=== PATIENT | male | born 1960 | race Caucasian/White ===

== ENCOUNTER → 2017-05-16 | Outpatient (CLI) | payer OTHER ==
--- NOTE | 2017-05-16 14:30 | CT ---
EXAMINATION TYPE: CT brain wo con DATE OF EXAM: 05/16/2017 COMPARISON: NONE HISTORY: Headache CT DLP: 1090.[address] of the brain was performed. The ventricles, basal cisterns and sulci overlying the cerebral convexities demonstrate mild enlargem ent. There is no evidence for intracranial hemorrhage or sulcal effacement. There is decreased attenuation about the periventricular white matter and deep white matter of both c erebral hemispheres, compatible with chronic small vessel ischemia. Differential diagnosis does inclu de demyelination. No mass effects are seen.No midline shift. Osseous calvarium is intact. If symptoms persist consider MRI. IMPRESSION: 1. Age related atrophic and chronic small vessel ischemic change without acute intracranial process s een at this time.
== END ==
LOC: RADCTMAIN 13:59
PROVIDERS: ATTEND Family Medicine
DX: G31.1 Senile degeneration of brain, not elsewhere classified (principal); I67.82 Cerebral ischemia
CPT/HCPCS: 70450

== ENCOUNTER → 2017-06-08 | Outpatient (CLI) | payer OTHER ==
--- NOTE | 2017-06-08 17:05 | MR ---
EXAMINATION TYPE: MR brain wo con DATE OF EXAM: 06/08/2017 4:21 PM COMPARISON: NONE HISTORY: Headaches, FINDINGS: The ventricles, basal cisterns and sulci overlying the cerebral convexities are mildly enlarged. There is evidence of mild periventricular white matter ischemic demyelination. Tiny scattered foci of increased signal are seen within the deep and subcortical white matter of both cerebral hemispheres as well as the earl. The findings are nonspecific and could be related to chron ic migraine headaches, vasculitis, chronic small vessel ischemic change, sequela of Lyme's disease as well as demyelinating process. No acute edema is seen on diffusion weighted imaging. There is no evidence for midline shift or mass effect. Acute intracranial hemorrhage or extra-axial collection is not evident. Chronic paranasal sinusitis. Mastoid air cells well-aerated. IMPRESSION: Age-related atrophic and chronic small vessel ischemic change. Nonspecific tiny scattered foci of inc reased signal as discussed. No acute intracranial process at this time.
== END | disposition home or self-care (01) ==
LOC: RADMRIMAIN 15:36
PROVIDERS: ATTEND Physician Assistant Medical
DX: G31.1 Senile degeneration of brain, not elsewhere classified (principal); I67.82 Cerebral ischemia; R51 Headache
CPT/HCPCS: 70551

== ENCOUNTER → 2017-08-08 | Outpatient (CLI) | payer OTHER ==
--- NOTE | 2017-08-08 15:00 | XR ---
Cervical spine HISTORY: Neck pain, headache 5 views of the cervical spine No comparisons Cervical vertebral bodies show preserved height. Minimal retrolisthesis grade 1 C5-6. Loss of disc he ight present at the intervertebral levels especially at C4-5, C5-6 and C6-7, there is associated spon dylosis. Foraminal encroachment suspected at 4, C4-5, C5-6 and C6-7 on the right. IMPRESSION: Degenerative disc disease
== END ==
LOC: RADXRYALE 14:00
PROVIDERS: ATTEND Physician Assistant
DX: M50.30 Other cervical disc degeneration, unspecified cervical region (principal)
CPT/HCPCS: 72050

== ENCOUNTER 2017-08-23 09:45 | Day surgery (SDC) | payer OTHER ==
[2017-08-22 09:00] VITALS: BMI 31.2
[~2017-08-23 09:45] MED LIST: LACTATED RINGERS 1,000 ML IV SCH
[2017-08-23 11:04] VITALS: TEMP 98.2
[2017-08-23] MEDS ORDERED: LIDOCAINE 1% 20 ML VIAL (10MG/ML) FOR IV START INTRADERMA ONE (11:13)
[2017-08-23] MEDS ORDERED: PROPOFOL 10 MG/ML 20 ML VIAL IV ONE (11:46)
--- NOTE | 2017-08-23 12:19 | P.PCN ---
Date of Procedure: 08/23/17 Procedure(s) Performed: Procedure: Colonoscopy and polypectomy. Preoperative diagnosis: Screening for neoplasia. Postoperative diagnosis: Small right colon polyp snared but no large polyps or cancer. Preparation: HalfLytely prep. Sedation: Was provided by anesthesia. Brief clinical history: The patient is a 56-year-old male who is referred for this evaluation for screening for neoplasia age being his risk factor. There is no family history of colon cancer. The patient has no abdominal complaints, bleeding or anemia. This would be his first colonoscopy. Procedure: With the patient on his left lateral decubitus position and after informed consent and adequate sedation, the perianal area was inspected and it did not show any fissures or fistulas. There were no masses felt on digital rectal examination. The Olympus CFQ 160L video colonoscope was then inserted in the rectum in the usual fashion and advanced to the cecum. There was a small polyp in the proximal right colon which was snared and retrieved by suction but there were no large polyps or cancer. No obvious diverticular disease or other pathology. I retroflexed the endoscope in the rectum before the endoscope was withdrawn. The patient tolerated the procedure well. Plan: The patient was reassured. Will await pathology results. I anticipate repeating this colonoscopy in 5 years. He will follow up with you as planned.
[2017-08-23 12:48] VITALS: BP 115/74; PULSE 62; RESP 18
== END 2017-08-23 12:52 | disposition home or self-care (01) ==
LOC: ORWHC2ENDO 09:45
DX: Z12.11 Encounter for screening for malignant neoplasm of colon (principal); D12.2 Benign neoplasm of ascending colon; I10 Essential (primary) hypertension; F17.200 Nicotine dependence, unspecified, uncomplicated; Z79.899 Other long term (current) drug therapy
CPT/HCPCS: 45385; 88305; J2704

== ENCOUNTER → 2019-05-09 | Outpatient (CLI) | payer OTHER ==
--- NOTE | 2019-05-10 12:26 | XR ---
Left knee HISTORY: Pain 3 views of left knee Bone mineralization, joint spaces and alignment are maintained. There is no sizable joint effusion. M ild marginal spurring present at the patellofemoral joint. No fracture or dislocation. IMPRESSION: Suspect some mild osteoarthritic change.
== END | disposition home or self-care (01) ==
LOC: RADXRYALE 15:59
PROVIDERS: ATTEND Physician Assistant Medical
DX: M25.562 Pain in left knee (principal)

== ENCOUNTER → 2020-12-12 | Outpatient (CLI) | payer OTHER ==
--- NOTE | 2020-12-12 14:04 | XR ---
Right knee HISTORY: Pain 3 views the right knee correlated prior exam 01/01/2015 There is some spurring at the patellofemoral joint. Suprapatellar increased density may reflect small joint effusion. There are vascular calcifications present. Bone mineralization is maintained, strain space loss tricompartmentally, marginal spurring also present at the medial compartment. IMPRESSION: Osteoarthritis.
== END ==
LOC: RADXRYALE 11:40
PROVIDERS: ATTEND Physician Assistant Medical
DX: M17.11 Unilateral primary osteoarthritis, right knee (principal)

== ENCOUNTER → 2021-05-28 | Outpatient (CLI) | payer OTHER ==
--- NOTE | 2021-05-28 14:16 | EST ---
EXERCISE STRESS AGE: 60 SEX: M HT: 6'3" WT: 270 lbs. PROTOCOL: Abraham STAGE: 2 DURATION OF EXERCISE: 6:27 HEART RATE REST: 70 BLOOD PRESSURE REST: 125/84 MAXIMUM HEART RATE ACHIEVED: 137 MAXIMUM BLOOD PRESSURE: 204/63 85% MPHR: 136 100% MPHR: 160 METS: 7.7 INDICATIONS: Chest pain CLINICAL INFORMATION: Baseline EKG revealed normal sinus rhythm without significant ST-T changes. Patient walked on standard Abraham protocol for 6 minutes 27 seconds, achieved a maximal heart rate of 137 beats per minute, which is 85% of predicted maximum. He developed fatigue and shortness of breath but did not have any angina or any arrhythmia. Resting blood pressure was 124/84. Peak blood pressure was 204/63. EKG did not reveal any ST- segment changes to indicate ischemia. FINAL IMPRESSION: 1. Limited exercise capacity. 2. Negative stress test by EKG criteria without any evidence of angina or arrhythmia or EKG changes to indicate ischemia. 3. Patient had a slightly hypertensive response to exercise. MMODL / IJN: [id number] /
== END | disposition home or self-care (01) ==
LOC: RADNMMAIN 08:18
PROVIDERS: ATTEND Family Medicine
DX: R07.9 Chest pain, unspecified (principal)
CPT/HCPCS: 93017

== ENCOUNTER → 2023-03-31 | Outpatient (CLI) | payer OTHER ==
--- NOTE | 2023-03-31 14:26 | CTL ---
EXAMINATION TYPE: CT Low Dose Lung DATE OF EXAM: 03/31/2023 2:20 PM CLINICAL INDICATION:Male, 62 years old with history of Z87.891; Personal history of tobacco use. , hi story of tobacco use. COMPARISON: None. TECHNIQUE: Multiple axial non-contrast scans were obtained from approximately the lung apices through the upper abdomen. Coronal and sagittal reformatted images were obtained. Low dose technique was uti lized. CT DLP: 97 mGycm, Automated exposure control for dose reduction was used. CT Contrast: Contrast used: None Oral contrast used: None FINDINGS: ======== Lack of intravenous contrast and low dose technique limits the evaluation of the vascular and soft ti ssue structures. LUNGS: No evidence of pulmonary fibrosis. No evidence of focal consolidation, pneumothorax or pleural effusion. Mild centrilobular emphysema changes throughout the lungs. Nodules: RUL: None. RML: None. RLL: None. JOAQUIN: None. LLL: 5 mm left lower lobe series 3 image 29. AIRWAY: Patent and unremarkable. HEART: Size within normal limits. Mild scattered desiccation of the coronary arteries. MEDIASTINUM: No gross evidence of adenopathy. VASCULATURE: No aortic aneurysm. MUSCULOSKELETAL: Mild disc degeneration changes are present throughout the thoracolumbar spine. SOFT TISSUES/LYMPH NODES: Unremarkable. LOWER NECK: No significant findings. UPPER ABDOMEN: No significant findings. IMPRESSION: 1. No clinically significant pulmonary nodules. 2. Mild emphysema changes. CT LUNG RAD AND CT CHEST RECOMMENDATION: Lung-Rad 2 Benign Appearance or Behavior: Continue annual sc reening with LDCT in 12 months. S Modifier (other clinically significant findings): None Recommend smoking cessation (if current smoker), or continuation of smoking cessation (if prior smoke r). Annual screening for lung cancer with low-dose computed tomography is recommended in adults ages 55 to 77 years who have a 30 pack-year smoking history and currently smoke or have quit within the pa st 15 years. Screening should be discontinued once a person has not smoked for 15 years or develops a health problem that substantially limits life expectancy or the ability or willingness to have [place] lung surgery. Lung rads 2021 [email or web address]
== END | disposition home or self-care (01) ==
LOC: RADCTMAIN 13:32
PROVIDERS: ATTEND Family Medicine
DX: Z12.2 Encounter for screening for malignant neoplasm of respiratory organs (principal); J43.9 Emphysema, unspecified; F17.210 Nicotine dependence, cigarettes, uncomplicated
CPT/HCPCS: 71271

== ENCOUNTER → 2023-05-09 | Outpatient (CLI) | payer OTHER ==
[2023-05-09 11:12] LABS: INR 0.9 (<1.2); Partial Thromboplastin Time 23.5 sec (22.0-30.0); Prothrombin Time 9.9 sec (9.0-12.0)
[2023-05-09 15:36] LABS: HCT 45.8 % (39.6-50.0); HGB 14.8 d/dL (13.0-17.0); MCH 31.8 pg (27.0-32.0); MCHC 32.3 d/dL (32.0-37.0); MCV 98.5 FL (80.0-97.0); Mean Platelet Volume 10.9 FL (9.5-12.2); NRBC Per 100 WBC 0 X 10*3/uL (0.00-0.01); Platelet Count 249 X 10*3/uL (140-440); RBC 4.65 X 10*6/uL (4.40-5.60); RDW 13.1 % (11.5-14.5)
[2023-05-09 15:55] LABS: ALT 33 U/L (10-49); AST 40 U/L (14-35); Albumin 4.2 d/dL (3.8-4.9); Albumin/Globulin Ratio 1.35 Ratio (1.60-3.17); Alkaline Phosphatase 113 U/L (41-126); BUN/Creat Ratio 19.44 Ratio (12.00-20.00); Blood Urea Nitrogen 17.5 mg/dL (9.0-27.0); Calcium 9.1 mg/dL (8.7-10.3); Chloride 106 mmol/L (96-109); Globulin 3.1 d/dL (1.6-3.3); Glucose 95 mg/dL (70-110); Potassium 5.1 mmol/L (3.5-5.5); Sodium 140 mmol/L (135-145); Total Bilirubin 0.4 mg/dL (0.3-1.2); Total Protein 7.3 d/dL (6.2-8.2)
[2023-05-09 16:31] LABS: Appearance,Urine Cloudy (Clear); Bilirubin,Urine Negative (Negative); Blood,Urine Trace (Negative); Color,Urine Dark Yellow (Yellow); Ketones,Urine Trace (Negative); Nitrite,Urine Negative (Negative); PH, Urine 5.5; Specific Gravity,Urine 1.021 (1.001-1.030)
[2023-05-09 17:21] LABS: Bacteria,Urine None Seen (None Seen); Calcium Oxalate Crystals,Urine Present (None Seen)
== END | disposition home or self-care (01) ==
LOC: LABPAT 09:54
PROVIDERS: ATTEND Orthopaedic Surgery
DX: Z01.812 Encounter for preprocedural laboratory examination (principal); M17.11 Unilateral primary osteoarthritis, right knee; I21.4 Non-ST elevation (NSTEMI) myocardial infarction; R94.31 Abnormal electrocardiogram [ECG] [EKG]
CPT/HCPCS: 80053; 81001; 85027; 85610; 85730; 87070; 93005

== ENCOUNTER 2023-05-23 10:50 | Day surgery (SDC) | payer OTHER ==
[2023-05-13 13:58] VITALS: BMI 33.7
[~2023-05-23 10:50] MED LIST changes: +ACETAMINOPHEN TAB 500 MG TAB PO PRN; +DEXAMETHASONE SOD PHOSPHATE 4 MG/ML 1 ML VIAL IV ONE; +HYDROmorphone 0.5 MG/0.5 ML SYRINGE IVP PRN; +LIDOCAINE 1% (10MG/ML) FOR IV START INTRADERMA PRN; +MELOXICAM 7.5 MG TAB PO PRN; +MIDAZOLAM 2 MG/2 ML VIAL IV PRN; +ONDANSETRON 4 MG/2 ML VIAL IVP ONE; +ONDANSETRON 4 MG/2 ML VIAL IVP PRN; +TRANEXAMIC 1,000 MG/100ML-NACL 1,000 MG in SALINE 1 100ML.BAG IVPB PRN; +ceFAZolin 3 GM in SODIUM CHLORIDE 0.9% 100 ML IVPB PRN
[2023-05-23 11:54] VITALS: RESP 16
[2023-05-23] MEDS ORDERED: MIDAZOLAM 2 MG/2 ML VIAL IVP ONE (12:12)
[2023-05-23] MEDS ORDERED: PROPOFOL 10 MG/ML 20 ML VIAL IV ONE (12:30)
[2023-05-23] MEDS ORDERED: NEOSTIGMINE 1 MG/ML 10 ML VIAL ONE (12:30)
[2023-05-23] MEDS ORDERED: TRANEXAMIC 1,000 MG/100ML-NACL PREMIX BAG ONE (12:30)
[2023-05-23] MEDS ORDERED: SODIUM CHLORIDE 0.9% (PF) 10 ML VIAL ONE (12:30)
[2023-05-23] MEDS ORDERED: ROCURONIUM 10 MG/ML (5 ML VIAL) IV ONE (12:30)
[2023-05-23] MEDS ORDERED: SUCCINYLCHOLINE CHLORIDE 200 MG/10 ML VIAL IV ONE (12:30)
[2023-05-23] MEDS ORDERED: fentaNYL (PF) 50 MCG/ML 2 ML AMP ONE (12:30)
[2023-05-23] MEDS ORDERED: KETAMINE 10 MG/ML 20 ML VIAL ONE (12:30)
[2023-05-23] MEDS ORDERED: PHENYLEPHRINE-0.9% NACL SYG 1,000 MCG/10 ML SYRINGE ONE (12:30)
[2023-05-23] MEDS ORDERED: LIDOCAINE 2% INJ 20 MG/ML (2 ML VIAL) ONE (12:30)
[2023-05-23] MEDS ORDERED: MIDAZOLAM 2 MG/2 ML VIAL ONE (12:30)
[2023-05-23] MEDS ORDERED: GLYCOPYRROLATE 0.2 MG/ML 2 ML VIAL ONE (12:30)
[2023-05-23] MEDS ORDERED: ROPIVACAINE 5 MG/ML 30 ML VIAL ONE (12:30)
[2023-05-23] MEDS ORDERED: HYDROmorphone (PF) 1 MG/ML ONE (12:30)
[2023-05-23] MEDS ORDERED: ceFAZolin 1,000 MG in SODIUM CHLORIDE 0.9% 1,000 ML IRRIGATION ONE (12:36)
--- NOTE | 2023-05-23 12:36 | P.ANPRN ---
Procedure Note - Anesthesia - Nerve Block Performed Right Adductor Canal Time Out Performed: Yes (12:11) Date of Procedure: 05/23/23 Procedure Start Time: 12:11 Procedure Stop Time: 12:16 Location of Patient: PreOp Indication: Acute Post-Operative Pain, Requested by Surgeon (Dr Galvan) Sedation Type: Sedate with meaningful contact maintained Preparation: Sterile Prep, Sterile Dressing Position: Supine Catheter: Indwelling Needle Types: Pajunk Needle Gauge: 21 Ultrasound used to visualize needle placement: Yes Ultrasound used to observe medication spread: Yes Injectate: 0.5% Ropivacaine (see comment for volume) (20cc) Blood Aspirated: No Pain Paresthesia on Injection Noted: No Resistance on Injection: Normal Image Stored and Saved: Yes Events: Uneventful and Well Tolerated
--- NOTE | 2023-05-23 12:38 | P.ANPRN ---
Procedure Note - Anesthesia - Nerve Block Performed Right iPack Time Out Performed: Yes Date of Procedure: 05/23/23 Procedure Start Time: : Procedure Stop Time: : Location of Patient: PreOp Indication: Acute Post-Operative Pain, Requested by Surgeon (Dr Galvan) Sedation Type: Sedate with meaningful contact maintained Preparation: Sterile Prep Position: Supine Catheter: None Needle Types: Pajunk Needle Gauge: 21 Ultrasound used to visualize needle placement: Yes Ultrasound used to observe medication spread: Yes Injectate: 0.5% Ropivacaine (see comment for volume) (15cc +5cc PF Normal saline) Blood Aspirated: No Pain Paresthesia on Injection Noted: No Resistance on Injection: Normal Image Stored and Saved: Yes Events: Uneventful and Well Tolerated
[2023-05-23] MEDS ORDERED: LACTATED RINGERS 1,000 ML IV ONE (13:40)
--- NOTE | 2023-05-23 13:59 | P.OP ---
Date of Procedure: 05/23/23 Procedure(s) Performed: PREOPERATIVE DIAGNOSIS: Right knee severe medial compartment osteoarthritis with genu varum POSTOPERATIVE DIAGNOSIS: Right knee severe medial compartment osteoarthritis with genu varum OPERATION: Right knee medial compartment cemented unicompartmental replacement arthroplasty (metal on polyethylene) ANESTHESIA: General plus regional IPAC block ESTIMATED BLOOD LOSS: 50 ml. TORCH BURNER: Madelin Branch PA-C (assistance with: patient positioning, retraction, exposure, hemostasis, leg positioning, implantation, irrigation, closure, dressing) COMPLICATIONS: None apparent. COMPONENTS IMPLANTED: Journey Unicompartmental knee system from [employer] INDICATIONS: Julian is a 62 year old male with a history of right knee unicompartmental medial osteoarthritis. Conservative management has failed. He has a mild degree of arthritis involving the patellofemoral and lateral compartments. The operation of medial unicompartmental knee replacement has been discussed at length in the office, as well as potential risks and complications. These are inclusive of, but not limited to: bleeding, infection, scarring, discomfort, blood vessel and nerve damage, need for further surgery, failure to relieve symptoms, persistence, recurrence, or worsening of problems, loosening, dislocation, wear, blood clot, pulmonary embolism, , gait dysfunction, stiffness, and other risks as discussed in the office. The patient elects to proceed and the consent form has been signed. PROCEDURE: The patient was taken to the operating room and positioned on the operating room table in the supine position. Anesthesia was initiated. Care was taken to make sure that all pressure points were adequately padded. The operative lower extremity was prepped and draped in the usual aseptic fashion using ChloraPrep. Ioban drape was used for the case and the patient received intravenous antibiotics within one hour of the incision. A pneumotourniquet and leg jasso were used for the case. The limb was exsanguinated with an Esmarch bandage and the tourniquet was inflated to 275 mmHg. Time-out was called confirming the patient's identity, side, procedure and administration of antibiotics and tranexamic acid. The incision was then created over the medial aspect of the knee from approximately the superior pole of the patella down to adjacent to the tibial tubercle. Incision was carried down through skin and into subcutaneous tissues and sharp dissection was carried down to fascia. Hemostasis was obtained using electrocautery. Medial parapatellar arthrotomy was performed from approximately the level of the VMO to just below the tibial surface. Partial fat pad was resected and due to the previous surgeries this patient has had, the fat pad was somewhat scarred. These adhesions within the fat pad were released using cautery. This allowed better patellar mobilization. Excellent visualization of the medial compartment was accomplished. Retractors were placed within the notch and the medial condyle. Careful release of the anterior medial soft tissues from bone was accomplished using sharp dissection. This was carried to but not into the medial collateral ligament. Tibial cut was performed first. The guide for the tibial cut was attached to the patient's lower extremity and the guide was placed against the bone. The boom of the guide was placed parallel to the palpable anterior surface of the tibia and arranged to be in line with the second metatarsal area the cut was planned to be exactly adjacent to the notch region of the medial femoral condyle. It should be noted that the patient's ACL and PCL were intact and normal in appearance. The depth of resection was set using the 4 mm guide. The guide was then pinned into position and the cut was created using an oscillating saw along with a reciprocating saw for the sagittal cut. The tibial fragment was then removed and the surface finished. Medial meniscus remnant was removed at this time. Next, the knee was placed into full extension and various spacers were placed in the medial compartment to assess the distance. The size 9 mm spacer was selected and a guide was placed onto this spacer and the guide was held into place on the femur with a headed pin. The distal femoral cut was then created through this guide and the fragment was removed. Flexion and extension gaps were then assessed and found to be satisfactory. The knee was then bent to 90 retractors were placed and the guide for femoral finishing was placed. Femur was finished using this guide. Next, tibia was sized and finished and the trial component was left in place. Femoral trial component was placed, and 9 mm spacer was utilized for trial. Excellent range of motion, stability, and alignment were noted. The trial components were then removed and the femoral and tibial surfaces were pulse lavaged and dried for cementing. Cement was mixed on the back table and applied to the final components. Cement was also pressurized into the bone with finger pressurization technique. Final components were then impacted into place and excess cement was removed. The 9 mm trial spacer was laced during this process. Axial force was applied to the leg during the curing process of the cement. Once the cement had fully hardened, excess cement was further removed, and the knee was assessed for range of motion stability and alignment based on the thickness of the planned polyethylene spacer. The 9 mm spacer was called for and implanted. Final range of motion and stability check was satisfactory. The tourniquet was deflated and hemostasis was obtained with electrocautery, another gram of trane xamic acid, and bone wax. Closure was performed of the fascia using a combination of #2 Ethibond suture as well as a running strata fix suture. Subcu closure was performed with 2-0 Vicryl suture in interrupted fashion followed by strata fix suture in running subcuticular fashion for the skin and Exofin topical dressing. A lightly compressive dressing was applied using Webril and an Krishna wrap. The patient was then transferred to stretcher and taken to the recovery room in stable condition. Sponge and needle counts were correct.
[2023-05-23] MEDS ORDERED: ROPIVACAINE 1,100 MG, SODIUM CHLORIDE 0.9% 500 ML 330 ML, EMPTY PAIN BALL 1 EACH MISCELLANE PRN ×2 (14:36)
[2023-05-23 14:46] VITALS: TEMP 97.6
--- NOTE | 2023-05-23 15:18 | XR ---
EXAMINATION TYPE: XR knee limited RT DATE OF EXAM: 05/23/2023 COMPARISON: NONE TECHNIQUE: Two views submitted HISTORY: Post op FINDINGS: There is a hemiprosthesis in near anatomic alignment. There is soft tissue edema and soft tissue em physema compatible with recent surgery. There is a small amount of fluid is present. Vascular calcifi cations and diffuse osteopenia. IMPRESSION: 1. Postoperative change. Appears in near-anatomic alignment
[2023-05-23 16:12] VITALS: BP 125/77; PULSE 64
[2023-05-23] MEDS ORDERED: ceFAZolin 3 GM in SODIUM CHLORIDE 0.9% 100 ML IVPB ONE (16:30)
== END 2023-05-23 16:34 | disposition home or self-care (01) ==
LOC: OR 10:50
PROVIDERS: ATTEND Orthopaedic Surgery
DX: M17.11 Unilateral primary osteoarthritis, right knee (principal); I10 Essential (primary) hypertension; F17.210 Nicotine dependence, cigarettes, uncomplicated; F10.90 Alcohol use, unspecified, uncomplicated; Z79.899 Other long term (current) drug therapy
CPT/HCPCS: 64999; 64448; 73560; 27446; C1713; C1776; C1751; J2250; J0330; J1100; J2710; J0690 ×2; J2405; J3010; J1170; J2795; J2704; J2001; J2371

== ENCOUNTER 2023-07-05 09:42 | Day surgery (SDC) | payer OTHER ==
[2023-07-05] MEDS: LACTATED RINGERS 1,000 ML IV SCH ×2 (11:02→11:38)
[2023-07-05 11:07] VITALS: TEMP 97.9
[2023-07-05] MEDS ORDERED: PROPOFOL 10 MG/ML 20 ML VIAL IV ONE (11:39)
--- NOTE | 2023-07-05 11:58 | P.PCN ---
Date of Procedure: 07/05/23 Procedure(s) Performed: BRIEF HISTORY: Patient is a 62-year-old pleasant white male scheduled for an elective colonoscopy as a part of evaluation of prior history of colon polyps. Last coloscopy was 6 years ago. PROCEDURE PERFORMED: Colonoscopy snare polypectomy. PREOPERATIVE DIAGNOSIS: History of colon polyps. IV sedation per Anesthesia. PROCEDURE: After informed consent was obtained, the patient, was brought into the endoscopy unit. IV sedation was administered by Anesthesia under continuous monitoring. Digital rectal examination was normal. Initially the Olympus CF-160 flexible video colonoscope was then inserted in the rectum, gradually advanced into the cecum without any difficulty. Careful examination was performed as the scope was gradually being withdrawn. Ileocecal valve and the appendiceal orifice were visualized and appeared normal. Prep was excellent. Mucosa of the cecum, a scending colon, transverse colon, normal. In the descending colon at 60 cm from the anal was there was a 1 m broad-based polyp that was removed by piecemeal snare polypectomy and complete polypectomy done. Rest of the descending colon, sigmoid colon, and rectum appeared normal. Retroflexion was performed in the rectum and grade 2 internal hemorrhoids were seen. The patient tolerated the procedure well. IMPRESSION: 2 cm broad-based ascending colon polyp status post piecemeal snare polypectomy and complete polypectomy accomplished Grade 2 internal hemorrhoids RECOMMENDATIONS: Findings of this examination were discussed with the patient as well as his family.. He was advised to follow with the biopsy results. If the biopsy results adenoma he can have a repeat colonoscopy in 3 years
[2023-07-05 12:10] VITALS: RESP 18
[2023-07-05 12:34] VITALS: BP 143/78; PULSE 83
== END 2023-07-05 12:34 | disposition home or self-care (01) ==
LOC: ORWHC2ENDO 09:42
PROVIDERS: ATTEND Internal Medicine Gastroenterology
DX: Z12.11 Encounter for screening for malignant neoplasm of colon (principal); D12.4 Benign neoplasm of descending colon; K64.1 Second degree hemorrhoids; I10 Essential (primary) hypertension; M19.90 Unspecified osteoarthritis, unspecified site; F17.200 Nicotine dependence, unspecified, uncomplicated; Z86.010 Personal history of colon polyps; Z79.82 Long term (current) use of aspirin; Z79.899 Other long term (current) drug therapy
CPT/HCPCS: 88305; 45385; J2704